=== PATIENT | male | born 1980 | race Caucasian/White ===

== ENCOUNTER 2021-09-11 15:42 | Observation (INO) | payer BC ==
[2021-09-11] MEDS ORDERED: Metoclopramide 10 MG/2 ML SDV IVPUSH ONE (15:59)
[2021-09-11] MEDS ORDERED: HYDROmorphone 0.5 MG/0.5 ML Syringe IVPUSH ONE (15:59)
[2021-09-11] MEDS ORDERED: Dextrose 5%-0.9% NaCl 1,000 ML IV SCH (16:00)
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
[2021-09-11] MEDS ORDERED: Iopamidol 612 MG/ML 100 ML Bottle IVPUSH ONE (16:36)
[2021-09-11] MEDS ORDERED: Iopamidol 612 MG/ML 50 ML SDV IVPUSH ONE (16:36)
[2021-09-11] MEDS: Sodium Chloride 0.9% 10 ML Syringe FLUSH ONE (16:39)
--- NOTE | 2021-09-11 16:58 | CT ---
CT chest Technique: Multiple axial sections through the chest were obtained. Intravenous contrast was utilized. Reconstructed coronal and sagittal images were obtained. Comparison: No prior chest imaging is available. Findings: Small left-sided pneumothorax is noted. There is a fracture being seen on the bone window settings within the anterolateral left fourth rib. There is a small amount of air being seen within the chest wall at the site of the rib fracture. Rib fracture shows no significant displacement. Bone window settings show no other acute abnormality. Lungs are clear. No acute parenchymal change is seen. Thoracic aorta shows no abnormality. Mediastinum shows no adenopathy. No axillary adenopathy is noted. Impression: 1. Small left-sided pneumothorax. 2. Fracture within the anterolateral left fourth rib which shows adjacent soft tissue air within the chest wall. 3. No other acute abnormality is appreciated on CT study of the chest. Diagnostic code #3 CT abdomen and pelvis Technique: Multiple axial sections were obtained from above the dome of the diaphragm inferiorly through the pubic symphysis. Intravenous contrast was utilized. No oral contrast has been given. Reconstructed coronal and sagittal images were obtained. Comparison: No prior abdominal or pelvic imaging is available. Findings: Liver shows no focal parenchymal abnormality. Spleen size is normal. Adrenal glands show no nodule. Pancreas shows no focal abnormality. Gallbladder contains no calcified gallstones. Kidneys show symmetric contrast enhancement without hydronephrosis or mass. Abdominal aorta shows no aneurysm. No retroperitoneal adenopathy is seen. No mesenteric abnormalities are seen. Appendix is seen which is normal in size. No pelvic mass or adenopathy is seen. Bone window settings were reviewed which show disc space narrowing at L5 with slight vacuum disc phenomena. No acute osseous abnormality is appreciated. Impression: 1. Slight degenerative change within the lumbar spine. 2. Nothing acute is seen on CT study of the abdomen and pelvis. Diagnostic code #2
[2021-09-11] MEDS ORDERED: Propofol 200 MG/20 ML SDV ONE (17:09)
[2021-09-11] MEDS ORDERED: fentaNYL 100 MCG/2 ML SDV ONE (17:09)
[2021-09-11] MEDS ORDERED: Midazolam 1 MG/ML 2 ML SDV ONE (17:10)
--- NOTE | 2021-09-11 17:22 | PCM.PREANE ---
Preanesthetic Assessment - Procedure Proposed Procedure: Sedation for left eyebrow laceration and left chest tube placement - Anesthesia/Transfusion/Family Hx Anesthesia History: Prior Anesthesia Reaction Type of Anesthesia Reaction: Excessive Nausea/Vomiting (as a child) Family History of Anesthesia Reaction: No Transfusion History: No Prior Transfusion(s) Intubation History: Unknown - Review of Systems General: No Symptoms Pulmonary: Shortness of Breath Cardiovascular: Chest Pain Gastrointestinal: No Symptoms Neurological: No Symptoms Other: Reports: None - Physical Assessment NPO Status Date: 09/11/21 NPO Status Time: : Vital Signs: Last Vital Signs Temp 97.5 F 09/11/21 16:30 Pulse 82 09/11/21 16:30 Resp 16 09/11/21 16:30 BP 106/68 09/11/21 16:30 Pulse Ox 97 09/11/21 16:30 Height: 1.85 m Weight: 70.307 kg ASA Class: 1E Mental Status: Alert & Oriented x3 Airway Class: Mallampati = 2 Dentition: Reports: Normal Dentition, Caries Thyro-Mental Finger Breadths: 3 Mouth Opening Finger Breadths: 2 ROM/Head Extension: Full Lungs: Clear to Auscultation, Decreased Breath Sounds (to left side) Cardiovascular: Regular Rate, Regular Rhythm, No Murmurs - Lab Values: Laboratory Last Values WBC 9.54 K/mm3 (4.23-9.07) H 09/11/21 16:05 RBC 5.06 M/mm3 (4.63-6.08) 09/11/21 16:05 Hgb 14.8 gm/dl (13.7-17.5) 09/11/21 16:05 Hct 42.6 % (40.1-51.0) 09/11/21 16:05 MCV 84.2 fl (79.0-92.2) 09/11/21 16:05 MCH 29.2 pg (25.7-32.2) 09/11/21 16:05 MCHC 34.7 g/dl (32.2-35.5) 09/11/21 16:05 RDW Std Deviation 36.6 fL (35.1-43.9) 09/11/21 16:05 Plt Count 483 K/mm3 (163-337) H 09/11/21 16:05 MPV 7.8 fl (9.4-12.3) L 09/11/21 16:05 Neut % (Auto) 67.1 % (34.0-67.9) 09/11/21 16:05 Lymph % (Auto) 25.2 % (21.8-53.1) 09/11/21 16:05 [place] % (Auto) 6.8 % (5.3-12.2) 09/11/21 16:05 Eos % (Auto) 0.5 (0.8-7.0) L 09/11/21 16:05 Baso % (Auto) 0.2 % (0.1-1.2) 09/11/21 16:05 Neut # (Auto) 6.40 K/mm3 (1.78-5.38) H 09/11/21 16:05 Lymph # (Auto) 2.40 K/mm3 (1.32-3.57) 09/11/21 16:05 [place] # (Auto) 0.65 K/mm3 (0.30-0.82) 09/11/21 16:05 Eos # (Auto) 0.05 K/mm3 (0.04-0.54) 09/11/21 16:05 Baso # (Auto) 0.02 K/mm3 (0.01-0.08) 09/11/21 16:05 Sodium 140 mEq/L (136-145) 09/11/21 16:05 Potassium 4.0 mEq/L (3.5-5.1) 09/11/21 16:05 Chloride 100 mEq/L (98-107) 09/11/21 16:05 Carbon Dioxide 30 mEq/L (21-32) 09/11/21 16:05 Anion Gap 14.0 (5-15) 09/11/21 16:05 BUN 17 mg/dL (7-18) 09/11/21 16:05 Creatinine 1.3 mg/dL (0.7-1.3) 09/11/21 16:05 Est Cr Clr Drug Dosing TNP 09/11/21 16:05 Estimated GFR (MDRD) > 60 mL/min (>60) 09/11/21 16:05 BUN/Creatinine Ratio 13.1 (14-18) L 09/11/21 16:05 Glucose 101 mg/dL (70-99) H 09/11/21 16:05 Calcium 9.2 mg/dL (8.5-10.1) 09/11/21 16:05 Total Bilirubin 0.7 mg/dL (0.2-1.0) 09/11/21 16:05 AST 21 U/L (15-37) 09/11/21 16:05 ALT 20 U/L (16-63) 09/11/21 16:05 Alkaline Phosphatase 45 U/L (46-116) L 09/11/21 16:05 Total Protein 7.9 g/dl (6.4-8.2) 09/11/21 16:05 Albumin 4.1 g/dl (3.4-5.0) 09/11/21 16:05 Globulin 3.8 gm/dL 09/11/21 16:05 Albumin/Globulin Ratio 1.1 (1-2) 09/11/21 16:05 Amylase 54 U/L (25-115) 09/11/21 16:05 Blood Type O POSITIVE 09/11/21 16:05 Gel Antibody Screen Negative 09/11/21 16:05 - Allergies Allergies/Adverse Reactions: Allergies Allergy/AdvReac Type Severity Reaction Status Date / Time cefaclor [From [facility]] Allergy Airway Verified 09/11/21 15:56 Tightness - Acknowledgements Anesthesia Type Planned: MAC Pt an Appropriate Candidate for the Planned Anesthesia: Yes Alternatives and Risks of Anesthesia Discussed w Pt/Guardian: Yes Pt/Guardian Understands and Agrees with Anesthesia Plan: Yes PreAnesthesia Questionnaire HEENT History: Reports: None Cardiovascular History: Reports: Other (See Below) (Murmur has a child and patient stated that it has since resolved) Respiratory History: Reports: Pneumothorax Gastrointestinal History: Reports: None Genitourinary History: Reports: None Musculoskeletal History: Reports: None Neurological History: Reports: Concussion Psychiatric History: Reports: None Endocrine/Metabolic History: Reports: None Hematologic History: Reports: None Immunologic History: Reports: None Oncologic (Cancer) History: Reports: None Dermatologic History: Reports: Other (See Below) Other Dermatologic History: Laceration to eyebrow - Past Surgical History HEENT Surgical History: Reports: Other (See Below) Other HEENT Surgeries/Procedures: eye surgery for "lazy" eye. - SUBSTANCE USE Tobacco Use Status *Q: Never Tobacco User Tobacco Use Within Last Twelve Months: Snuff/Dip Second Hand Smoke Exposure: No Days Per Week of Alcohol Use: 0 Number of Drinks Per Day: 0 Total Drinks Per Week: 0 Recreational Drug Use History: No - HOME MEDS Home Medications: Home Meds . [No Known Home Meds] 09/11/21 [History] - CURRENT (IN HOUSE) MEDS Current Meds: Current Medications Dextrose/Sodium Chloride (Dextrose 5%-Normal Saline) 1,000 mls @ 250 mls/hr IV ASDIRECTED [facility] Last Admin: 09/11/21 16:15 Dose: 250 mls/hr Documented by: Discontinued Medications Fentanyl (Fentanyl 100 Mcg/2 Ml Sdv) Confirm Administered Dose 100 mcg .ROUTE .STK-MED ONE Stop: 09/11/21 17:10 Hydromorphone HCl (Hydromorphone 0.5 Mg/0.5 Ml Syringe) 0.5 mg IVPUSH ONETIME ONE Stop: 09/11/21 16:00 Last Admin: 09/11/21 16:12 Dose: 0.5 mg Documented by: Iopamidol (Iopamidol 612 Mg/Ml 100 Ml Bottle) 100 ml IVPUSH ONETIME ONE Stop: 09/11/21 16:37 Last Admin: 09/11/21 16:39 Dose: 100 ml Documented by: Iopamidol (Iopamidol 612 Mg/Ml 50 Ml Sdv) 25 ml IVPUSH ONETIME ONE Stop: 09/11/21 16:37 Last Admin: 09/11/21 16:39 Dose: 25 ml Documented by: Metoclopramide HCl (Metoclopramide 10 Mg/2 Ml Sdv) 7.5 mg IVPUSH ONETIME ONE Stop: 09/11/21 16:00 Last Admin: 09/11/21 16:10 Dose: 7.5 mg Documented by: Midazolam HCl (Midazolam 1 Mg/Ml 2 Ml Sdv) Confirm Administered Dose 2 mg .ROUTE .STK-MED ONE Stop: 09/11/21 17:11 Propofol (Propofol 200 Mg/20 Ml Sdv) Confirm Administered Dose 200 mg .ROUTE .STK-MED ONE Stop: 09/11/21 17:10 Sodium Chloride (Sodium Chloride 0.9% 10 Ml Syringe) 10 ml FLUSH ONETIME ONE Stop: 09/11/21 16:37 Last Admin: 09/11/21 16:39 Dose: 10 ml Documented by:
[2021-09-11] MEDS ORDERED: Lidocaine 1% 50 ML MDV ONE (17:25)
[2021-09-11] MEDS ORDERED: Ketamine 500 mg/10 ML MDV ONE (17:38)
[2021-09-11] MEDS ORDERED: Lidocaine 1% 50 ML MDV INJECT ONE (17:45)
[2021-09-11] MEDS ORDERED: Ketamine 500 mg/10 ML MDV IM ONE (18:03)
--- NOTE | 2021-09-11 18:58 | PCM48HPAN ---
Post Anesthesia Note - EVALUATION WITHIN 48HRS OF ANESTHETIC Vital Signs in Normal Range: Yes Patient Participated in Evaluation: Yes Respiratory Function Stable: Yes Airway Patent: Yes Cardiovascular Function Stable: Yes Hydration Status Stable: Yes Pain Control Satisfactory: Yes Nausea and Vomiting Control Satisfactory: Yes Mental Status Recovered: Yes Vital Signs: Last Vital Signs Temp 98.1 F 09/11/21 18:20 Pulse 62 09/11/21 18:20 Resp 16 09/11/21 18:20 BP 112/75 09/11/21 18:20 Pulse Ox 100 09/11/21 18:20 116/80 HR 64 RR14 97.0 99% 2 LPM
--- NOTE | 2021-09-11 19:03 | CR ---
Chest: Portable views of the chest was obtained. Comparison: Prior CT chest performed earlier the same day (4:18 PM). Study shows placement of a left-sided chest tube. Final position of the tube is within the left upper lung. Left-sided pneumothorax remains. Right lung is clear. Heart size and mediastinum are normal. Impression: 1. Left-sided chest tube with final position being within the left upper lung. 2. Continued pneumothorax is seen on current study. Diagnostic code #3
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
[2021-09-11] MEDS ORDERED: Ondansetron 4 MG/2 ML SDV IV PRN (19:24)
[2021-09-11] MEDS ORDERED: Polyethylene Glycol 3350 Powder 17 GM Packet PO PRN (19:24)
[2021-09-11] MEDS ORDERED: oxyCODONE 5 MG Tab PO PRN (19:24)
[2021-09-11] MEDS ORDERED: Ondansetron 4 MG Tab.DIS PO PRN (19:24)
[2021-09-11] MEDS ORDERED: Lactated Ringers 1,000 ML IV SCH (19:30)
[2021-09-11] MEDS: Acetaminophen 325 MG Tab PO SCH (21:36)
[2021-09-11] MEDS: HYDROmorphone 0.5 MG/0.5 ML Syringe IVPUSH PRN (21:39)
[2021-09-12] MEDS: Acetaminophen 325 MG Tab PO SCH ×3 (03:55→13:13)
--- NOTE | 2021-09-12 07:49 | PCM48HPAN ---
Post Anesthesia Note - EVALUATION WITHIN 48HRS OF ANESTHETIC Vital Signs in Normal Range: Yes Patient Participated in Evaluation: Yes Respiratory Function Stable: Yes Airway Patent: Yes Cardiovascular Function Stable: Yes Hydration Status Stable: Yes Pain Control Satisfactory: Yes Nausea and Vomiting Control Satisfactory: Yes Mental Status Recovered: Yes Vital Signs: Last Vital Signs Temp 98.4 F 09/12/21 01:20 Pulse 84 09/12/21 01:20 Resp 16 09/12/21 01:20 BP 97/42 L 09/12/21 01:20 Pulse Ox 99 09/12/21 01:20
[2021-09-12] MEDS ORDERED: Enoxaparin 30 MG/0.3 ML Syringe SUBCUT SCH (09:00)
[2021-09-12] MEDS ORDERED: Enoxaparin 40 MG/0.4 ML Syringe SUBCUT SCH (09:00)
[2021-09-12] MEDS: HYDROmorphone 0.5 MG/0.5 ML Syringe IVPUSH PRN (09:05)
--- NOTE | 2021-09-12 09:39 | CR ---
Chest: Portable view of the chest was obtained. Comparison: Prior chest x-ray of 09/11/21. Heart size and mediastinum are normal. Lungs are clear with no acute parenchymal change. No pneumothorax is seen. Left-sided chest tube is stable in position from last study performed yesterday. Bony structures show nothing acute. Previously noted rib fracture is not well seen. Impression: 1. Stable left-sided chest tube. 2. No findings of pneumothorax. No acute parenchymal change is seen. Diagnostic code #2
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
--- NOTE | 2021-09-12 14:33 | CR ---
Left shoulder: Single AP view of the left shoulder was obtained. Comparison: No prior shoulder study is available. Left-sided chest tube is seen. Previous rib fracture is not well seen as noted on chest CT study performed one day earlier. Glenohumeral joint and acromioclavicular joint are normal. No discrete fracture or other bony abnormality is seen. No soft tissue calcifications are seen. Impression: 1. Left-sided chest tube. 2. Single AP view of the left shoulder is otherwise unremarkable. Diagnostic code #2
--- NOTE | 2021-09-12 14:33 | CR ---
Chest: Portable view of the chest was obtained. Comparison: Prior chest x-ray performed earlier on the same day (9:03 AM). Stable position of left-sided chest tube. No pneumothorax is seen. Lungs are clear with no acute parenchymal change. Heart size and mediastinum are stable. No discrete bony abnormality is seen. Previously noted left rib fracture is not well seen on this exam. Impression: 1. Stable left chest tube with no pneumothorax. 2. Nothing acute is appreciated. Diagnostic code #2
--- NOTE | 2021-09-12 15:18 | PCM.SN.2 ---
- Free Text/Narrative Note: Pneumothorax has resolved. No airleak. No recurrence on waterseal. Chest tube removed. No immediate complications. Post pull chest xray planned at 6pm. If this is stable, then the patient can go home. Pain control.
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
--- NOTE | 2021-09-12 18:18 | CR ---
Chest: Portable view of the chest was obtained. Comparison: Prior chest x-ray performed earlier on the same date (2:07 PM). Left-sided chest tube has been removed. No pneumothorax is seen. Lungs are clear. Heart size and mediastinum are normal. No acute osseous finding is seen. Impression: 1. Left chest tube has been removed. 2. No findings of pneumothorax. Lungs remain clear. Diagnostic code #1
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
== END 2021-09-12 18:30 | disposition home or self-care (01) ==
LOC: JD.ED 15:42 → JD.MS 19:21
PROVIDERS: ADMIT Surgery; ATTEND Surgery
DX: S27.0XXA Traumatic pneumothorax, initial encounter (principal); S22.32XA Fracture of one rib, left side, initial encounter for closed fracture; S01.122A Laceration with foreign body of left eyelid and periocular area, initial encounter; Z88.8 Allergy status to other drugs, medicaments and biological substances
CPT/HCPCS: 12011; 32551; 36415; 71045; 71260; 73020; 74177; 80053; 82150; 85025; 86850; 86900; 86901; 94760; 96372; 96374; 96375; 96376; 99285; A9270; C1729; G0378; J1170; J1650; J2001; J2250; J2765; J3010; J7042; J7120; Q9967; 00520; J2704